=== PATIENT | male | born 1995 | race Caucasian/White ===

== ENCOUNTER 2019-04-02 16:56 | Emergency (ER) | payer BC ==
[~2019-04-02] VITALS: Ht 182.9 cm; Wt 81.7 kg
[2019-04-02] MEDS ORDERED: WELLBUTRIN SR150 M1 PO (17:03)
[2019-04-02] MEDS ORDERED: KLONOPIN2 MG PO (17:04)
[2019-04-02] MEDS ORDERED: EFFEXOR XR150 MG PO (17:05)
[2019-04-02] MEDS ORDERED: SPIRONOLACTONE100 M1 PO (17:06)
[2019-04-02] MEDS ORDERED: ESTRACE2 MG PO (17:21)
[2019-04-02] MEDS ORDERED: PROGESTERONE200 MG PO (17:21)
== END 2019-04-02 18:00 | disposition home or self-care (01) ==
LOC: ER 16:56
DX: R25.1 Tremor, unspecified (principal)